=== PATIENT | female | born 1995 | race Caucasian/White ===

== ENCOUNTER 2022-12-17 12:06 | Observation (INO) | payer MEDICAID, OTHER ==
[~2022-12-17] VITALS: Ht 157 cm; Wt 80.3 kg
== END 2022-12-17 15:00 | disposition home or self-care (01) ==
LOC: 8 EST LDRP 12:06
PROVIDERS: ADMIT Obstetrics & Gynecology; ATTEND Obstetrics & Gynecology
DX: O26.893 Other specified pregnancy related conditions, third trimester (principal); R10.9 Unspecified abdominal pain; O62.9 Abnormality of forces of labor, unspecified; Z3A.41 41 weeks gestation of pregnancy
CPT/HCPCS: 59025; 76805; 76818; G0378; 99281; G0379